=== PATIENT | male | born 1970 | race Caucasian/White ===

== ENCOUNTER 2017-06-20 12:23 | Emergency (ER) | payer OTHER ==
[~2017-06-20] VITALS: Ht 175.3 cm; Wt 69.5 kg
[2017-06-20 13:26] LABS: HEMATOCRIT 41.3 % (38.0-50.0); HEMOGLOBIN 14.1 G/DL (12.5-16.6); MCH 33.2 PG (29.0-34.0); MCHC 34.1 G/DL (30.0-36.0); MCV 97.2 FL (86-99); PLATELET COUNT 223 K/uL (156-360); RBC DIS.WIDTH-CV 12.4 % (11.8-14.6); RBC DIS.WIDTH-SD 44.4 % (39-53); RED BLOOD COUNT 4.25 M/uL (4.00-5.50); WHITE BLOOD COUNT 8.8 K/uL (4.1-10.2)
[2017-06-20 13:37] LABS: ALBUMIN 4.6 g/dL (3.2-4.8); CHLORIDE 108 mEq/L (99-109); POTASSIUM 3.8 mEq/L (3.7-5.4); SODIUM 138 mEq/L (136-147)
[2017-06-20 13:39] LABS: GLUCOSE 162 mg/dL (70-99); TOTAL PROTEIN 6.9 g/dL (6.4-8.3)
[2017-06-20 13:41] LABS: TOTAL BILIRUBIN 0.5 mg/dL (0.0-1.0)
[2017-06-20 13:43] LABS: ALKALINE PHOSPHATASE 40 IU/L (3-129); CREATININE 1.4 mg/dL (0.6-1.3); GFR ESTIMATE (CALCULATED) 57 mL/min/ (58.99-99999)
[2017-06-20 13:44] LABS: UREA NITROGEN (BUN) 19 mg/dL (9-23)
[2017-06-20 13:45] LABS: AST (GOT) 35 IU/L (2-34)
[2017-06-20 13:46] LABS: ALT (GPT) 44 IU/L (3-49); LIPASE 34 U/L (1.0-51.0)
[2017-06-20] MEDS ORDERED: NORCO 5/3251 TABLET PO (15:43)
[2017-06-20] MEDS ORDERED: ZOFRAN ODT4 MG PO (15:43)
[2017-06-20 15:53] VITALS: BP 112/73
== END 2017-06-20 15:56 | disposition home or self-care (01) ==
LOC: EME 12:23
PROVIDERS: Nurse Practitioner Family
DX: N20.0 Calculus of kidney (principal); K57.30 Diverticulosis of large intestine without perforation or abscess without bleeding; Z21 Asymptomatic human immunodeficiency virus [HIV] infection status; Z88.0 Allergy status to penicillin
CPT/HCPCS: 74177; 80053; 81003; 83690; 85027; J1885; J3010; J7030

== ENCOUNTER → 2017-07-04 | Outpatient (CLI) | payer OTHER ==
[~2017-07-04] VITALS: Ht 175.3 cm; Wt 70.3 kg
[~2017-07-04] MED LIST: BUPROPION XL150 MG PO; FENOFIBRATE160 M1 PO; LIPITOR80 MG PO; MULTIPLE VITAM1 EACH PO; NEURONTIN300 MG PO; NORCO 5/3251 TABLET PO; OXYCODONE-ACET1 EACH PO; TRIUMEQ TABLET1 EACH PO; VITAMIN D31000 UNIT PO; ZOFRAN ODT4 MG PO; ZOFRAN4 MG PO; ZUPLENZ4 MG SL
== END | disposition home or self-care (01) ==
LOC: AMB 08:25
PROC: 0TF4XZZ Fragmentation in Left Kidney Pelvis, External Approach (ICD-10-PCS; principal; 2017-07-04)
DX: N20.2 Calculus of kidney with calculus of ureter (principal); Z21 Asymptomatic human immunodeficiency virus [HIV] infection status; I10 Essential (primary) hypertension; E78.5 Hyperlipidemia, unspecified
CPT/HCPCS: 74021